=== PATIENT | male | born 1985 | race Caucasian/White ===

== ENCOUNTER 2020-06-17 22:26 | Emergency (ER) | payer OTHER, SELFPAY ==
[2020-06-17 22:42] VITALS: BP 140/82; PULSE 82; RESP 16; TEMP 36.8; O2SAT 100; BMI 31.9
--- NOTE | 2020-06-17 23:12 | ED.BACK ---
HPI - Back Pain/Injury General Chief Complaint: Back Pain/Injury Stated Complaint: back pain Time Seen by Provider: 06/17/20 23:00 Source: patient Limitations: no limitations History of Present Illness HPI Narrative: 34-year-old otherwise healthy gentleman who was walking down the stairs felt a slight pull in his lower right back without significant trauma preceding this. Over the course of the day the back pain and spasm increased. He did see his chiropractor in the morning with some mild adjustment but he was tenderness that significant manipulation was not done. He saw a massage therapist and had some cupping done later this afternoon and pain continued to worsen. He presents with severe back spasm and difficulty moving secondary to pain however did having no radicular symptoms or weakness. No difficulties with leaking urine or stool or with difficulty starting his stream. He describes no fevers, cough, abdominal pain, vomiting, diarrhea. He has no history of IV drug use and no risk factors for epidural abscess or diskitis. Related Data Previous Rx's Medication Instructions Recorded cyclobenzaprine 10 mg PO BEDTIME PRN #10 tab 06/18/20 oxycodone-acetaminophen 1 tab PO Q6H PRN #14 tab 06/18/20 Allergies Allergy/AdvReac Type Severity Reaction Status Date / Time No Known Drug Allergies Allergy Verified 06/17/20 22:42 Review of Systems Review of Systems Narrative: Remainder of review of systems including constitutional, ENT, cardiovascular, respiratory, GI, , musculoskeletal, skin, neurologic and psychiatric systems reviewed and are unremarkable except as noted in HPI. Patient History Social History Smoking Status: Current every day smoker Smoking Status: Current every day smoker tobacco type: vaping Substance Use Type: does not use Exam Narrative Exam Narrative: General: Alert appropriate in no acute distress Respiratory: Able to speak in full sentences, no obvious respiratory distress Skin: No obvious rashes, warm and dry Neurologic: Grossly intact no obvious asymmetries or abnormalities. Patella reflexes are 2+ and symmetrical as are ankle jerks. There is no sensory loss in lower extremities. Spine: Moderate paraspinous spasm right side approximately T10 through L3. Psych: appropriate insight and affect, cooperative Initial Vital Signs Initial Vital Signs: Vital Signs Temperature 98.3 F 06/17/20 22:42 Pulse Rate 82 06/17/20 22:42 Respiratory Rate 16 06/17/20 22:42 Blood Pressure 140/82 06/17/20 22:42 Pulse Oximetry 100 06/17/20 22:42 Course Orders Ordered: Discontinued Medications Ketorolac Tromethamine (Toradol) 15 mg IV NOW ONE Stop: 06/17/20 23:25 Last Admin: 06/17/20 23:52 Dose: Not Given Documented by: NELL Ketorolac Tromethamine (Toradol) 30 mg IM NOW ONE Stop: 06/17/20 23:53 Last Admin: 06/18/20 00:03 Dose: 30 mg Documented by: JEB Oxycodone/Acetaminophen (Percocet 5/325) 2 tab PO NOW ONE Stop: 06/17/20 23:25 Last Admin: 06/17/20 23:42 Dose: 2 tab Documented by: JEB Oxycodone/Acetaminophen (Endocet 5/325 Prepack) 1 bottle MISC SEEINSTR ONE Stop: 06/17/20 23:25 Last Admin: 06/18/20 01:02 Dose: 1 bottle Documented by: NELL Oxycodone/Acetaminophen (Endocet 5/325 Prepack) 1 bottle MISC SEEINSTR ONE Stop: 06/18/20 01:01 Last Admin: 06/18/20 01:02 Dose: Not Given Documented by: NELL Vital Signs Vital signs: Vital Signs - 8 hr 06/17/20 22:42 Temperature 98.3 F Pulse Rate 82 Respiratory Rate 16 Blood Pressure 140/82 Pulse Oximetry 100 MDM - Back Pain/Injury MDM Narrative Medical decision making narrative: 34-year-old gentleman with acute muscular strain with no preceding trauma, no evidence for metastatic or pathologic lesions, epidural abscess or diskitis with obvious back muscle spasm on palpation and no acute neurologic changes. He is medicated with Toradol and Percocet in the emergency department. Discharged home with prescription for Percocet and Flexeril at night if needed. Safe for home discharge Discharge Plan Departure Patient Disposition: Home Clinical Impression: Strain of lumbar region Qualifiers: Encounter type: initial encounter Qualified Code(s): S39.012A - Strain of muscle, fascia and tendon of lower back, initial encounter Instructions: DI for Low Back Pain Activity Restrictions/Additional Instructions: Thank you for coming in today You have an acute muscle strain in your low back that is causing her pain. There is no evidence of severe infection, broken bones or acute spinal cord issues. Your pain will likely be this bad for the 1st 2 days after the strain started. Making sure that you do get up and walk briefly at least around your home does help you heal faster Using 400 mg of ibuprofen (2 [id number] pills) and 1 Tylenol every 6 hours can be very helpful in controlling pain. For severe pain, using 400 mg of ibuprofen with 1-2 Percocet can be helpful. For muscle spasm you may find that Flexeril is helpful. If all it does is make you sleepy but does not help with the muscle spasm you do not need to continue taking it. If you notice fevers, numbness or inability to lift up your leg (not just painful), you find that you are leaking urine or can not urinate, you need to return to the emergency room for further evaluation. I hope you heal quickly Prescriptions: New oxycodone-acetaminophen 5-325 mg tablet 1 tab PO Q6H PRN (Reason: pain) Qty: 14 RF: 0 cyclobenzaprine 10 mg tablet 10 mg PO BEDTIME PRN (Reason: muscle spasm) Qty: 10 RF: 0 Stand Alone Forms: Work Release Note
[2020-06-17] MEDS: OXYCODONE/ACETAMINOPHEN 5/325 TABLET 2 TAB PO (23:42)
[2020-06-18] MEDS: KETOROLAC 60 MG/2 ML VIAL 30 MG IM (00:03)
[2020-06-18] MEDS: OXYCODONE/APAP 5/325 PREPACK 1 BOTTLE MISC (01:02)
[2020-06-18 01:11] VITALS: BP 137/75; PULSE 78; RESP 18; O2SAT 100
== END 2020-06-18 01:12 | disposition home or self-care (01) ==
PROVIDERS: Emergency Provider Emergency Medicine
DX: S39.012A Strain of muscle, fascia and tendon of lower back, initial encounter (principal)
CPT/HCPCS: 96372; 99283; J1885